=== PATIENT | female | born 1995 | race Caucasian/White ===

== ENCOUNTER → 2016-09-23 12:18 | Outpatient (CLI) | payer MEDICAID ==
[2015-12-04 06:10] VITALS: BMI 25.6
[~2016-09-23 12:18] MED LIST: IBUPROFEN600 MG PO; MOTRIN600 MG PO; PERCOCET 5-3251 TAB PO; PERCOCET 5/3251 TA1 PO; PRENATAL COMPLE1 TAB PO; VENTOLIN HFA18 GM INH
== END | disposition home or self-care (01) ==
LOC: D.US 12:18
DX: O44.00 Complete placenta previa NOS or without hemorrhage, unspecified trimester (principal)

== ENCOUNTER 2017-08-06 18:45 | Emergency (ER) | payer MEDICAID ==
[2015-12-04 06:10] VITALS: BMI 25.6
== END 2017-08-06 19:51 | disposition home or self-care (01) ==
LOC: D.ER 18:45
DX: H69.90 Unspecified Eustachian tube disorder, unspecified ear (principal); H66.93 Otitis media, unspecified, bilateral; F17.200 Nicotine dependence, unspecified, uncomplicated

== ENCOUNTER 2017-11-24 23:12 | Emergency (ER) | payer MEDICAID ==
[~2017-11-24] VITALS: Ht 162.6 cm; Wt 54.5 kg
[2017-11-24 23:26] VITALS: Ht 162.6 cm; Wt 54.5 kg
[2017-11-24 23:57] LABS: LYMPHOCYTES 31.7 % (15-50); MCH 23.3 pg (26.0-34.0); MCHC 30.6 g/dL (31.0-37.0); MCV 76.1 fL (80.0-100.0); MEAN PLATELET VOLUME 8.7 fL (7.4-10.4); NEUTROPHILS 56.5 % (40-80); PLATELET COUNT 282 10x3/uL (130-400); RBC 4.73 10x6/uL (4.00-5.40); RDW 19.7 % (11.5-14.5); WBC 6.8 10x3/uL (4.8-10.8)
[2017-11-25 00:03] LABS: APPEARANCE HAZY (CLEAR); BILIRUBIN NEGATIVE (NEGATIVE); COLOR YELLOW (YELLOW); GLUCOSE NEGATIVE (NEGATIVE); KETONE NEGATIVE (NEGATIVE); NITRITE NEGATIVE (NEGATIVE); PROTEIN 1+ mg/dL (NEGATIVE); SPECIFIC GRAVITY 1.025 (1.005-1.020); UROBILINOGEN NORMAL (NORMAL)
[2017-11-25 00:04] LABS: EPITHELIAL CELLS 0-5 /hpf (0-5); RED CELLS - URINE NONE SEEN /hpf (0-5); WHITE CELLS - URINE 0-5 /hpf (0-5)
[2017-11-25 00:05] LABS: BACTERIA MODERATE /hpf (NONE SEEN); MUCUS >1+ /lpf (NONE SEEN)
[2017-11-25 00:07] LABS: HCG SERUM NEGATIVE (NEGATIVE)
[2017-11-25 00:16] LABS: ALBUMIN 4.1 g/dL (3.4-5.0); ALKALINE PHOSPHATASE 88 U/L (46-116); ALT (SGPT) 16 U/L (10-68); BILIRUBIN - TOTAL 0.14 mg/dL (0.2-1.3); CALC OSMOLALITY 276 mosm/kg (275-300); CALCIUM 8.8 mg/dL (8.5-10.1); CARBON DIOXIDE 28.1 mmol/L (21.0-32.0); CHLORIDE - SERUM 104 mmol/L (98-107); CREATININE - SERUM 0.6 mg/dL (0.6-1.3); GLUCOSE 78 mg/dL (74-106); POTASSIUM - SERUM 4.4 mmol/L (3.5-5.1); PROTEIN - SERUM 7.8 g/dL (6.4-8.2); SODIUM 139 mmol/L (136-145); UREA NITROGEN 12 mg/dL (7-18); eGFR NON AFRICAN AMERICAN > 90 mL/min (90-120)
[2017-11-25 00:33] LABS: AMYLASE - SERUM 42 U/L (25-115); LIPASE 179 U/L (73-393)
[2017-11-25 01:25] VITALS: BP 121/69
== END 2017-11-25 01:26 | disposition home or self-care (01) ==
LOC: D.ER 23:12
PROVIDERS: Family Medicine
DX: R10.2 Pelvic and perineal pain (principal); N83.209 Unspecified ovarian cyst, unspecified side; F17.200 Nicotine dependence, unspecified, uncomplicated

== ENCOUNTER 2018-01-07 07:17 | Emergency (ER) | payer MEDICAID ==
[~2018-01-07] VITALS: Ht 162.6 cm; Wt 56.8 kg
[2018-01-07 07:32] VITALS: Ht 162.6 cm; Wt 56.8 kg
[2018-01-07 08:03] LABS: BASOPHILS 0.1 % (0-2); EOSINOPHILS 0.1 % (0-7); HEMATOCRIT 35.3 % (36.0-48.0); HEMOGLOBIN 11.1 g/dL (12-16); IMMATURE GRANULOCYTES 0.3 % (0-5); LYMPHOCYTES 4.2 % (15-50); MCH 24.4 pg (26.0-34.0); MCHC 31.4 g/dL (31.0-37.0); MCV 77.6 fL (80.0-100.0); MEAN PLATELET VOLUME 9.2 fL (7.4-10.4); MONOCYTES 3.7 % (2-11); NEUTROPHILS 91.6 % (40-80); RBC 4.55 10x6/uL (4.00-5.40); RDW 19.6 % (11.5-14.5); WBC 10.1 10x3/uL (4.8-10.8)
[2018-01-07 08:05] LABS: PLATELET COUNT 219 10x3/uL (130-400)
[2018-01-07 08:17] LABS: ALKALINE PHOSPHATASE 82 U/L (46-116); ALT (SGPT) 20 U/L (10-68); BILIRUBIN - TOTAL 0.52 mg/dL (0.2-1.3); CALC OSMOLALITY 275 mosm/kg (275-300); CALCIUM 8.8 mg/dL (8.5-10.1); CARBON DIOXIDE 26.8 mmol/L (21.0-32.0); CHLORIDE - SERUM 102 mmol/L (98-107); CREATININE - SERUM 0.7 mg/dL (0.6-1.3); GLUCOSE 89 mg/dL (74-106); POTASSIUM - SERUM 4.2 mmol/L (3.5-5.1); PROTEIN - SERUM 7.8 g/dL (6.4-8.2); SODIUM 139 mmol/L (136-145); UREA NITROGEN 11 mg/dL (7-18); eGFR NON AFRICAN AMERICAN > 90 mL/min (90-120)
[2018-01-07 08:21] LABS: AMYLASE - SERUM 29 U/L (25-115); LIPASE 91 U/L (73-393); TROPONIN-I < 0.017 ng/mL (0.000-0.060)
[2018-01-07 08:23] LABS: HCG URINE NEGATIVE (NEGATIVE)
[2018-01-07 08:43] LABS: APPEARANCE CLOUDY (CLEAR); COLOR YELLOW (YELLOW)
[2018-01-07 08:44] LABS: BACTERIA MANY /hpf (NONE SEEN); BILIRUBIN NEGATIVE (NEGATIVE); EPITHELIAL CELLS 0-5 /hpf (0-5); GLUCOSE NEGATIVE (NEGATIVE); KETONE NEGATIVE (NEGATIVE); MUCUS <1+ /lpf (NONE SEEN); NITRITE POSITIVE (NEGATIVE); PROTEIN TRACE mg/dL (NEGATIVE); RED CELLS - URINE 0-5 /hpf (0-5); UROBILINOGEN NORMAL (NORMAL)
[2018-01-07] MEDS ORDERED: KEFLEX500 MG PO (09:53)
[2018-01-07] MEDS ORDERED: PHENAZOPYRIDIN200 MG PO (09:53)
[2018-01-07] MEDS ORDERED: MACROBID100 MG PO (09:53)
[2018-01-07 10:56] VITALS: BP 118/62
== END 2018-01-07 11:00 | disposition home or self-care (01) ==
LOC: D.ER 07:17
PROVIDERS: Family Medicine
DX: N39.0 Urinary tract infection, site not specified (principal); M54.5 Low back pain; R51 Headache; R10.9 Unspecified abdominal pain; R00.2 Palpitations; R00.0 Tachycardia, unspecified; F17.200 Nicotine dependence, unspecified, uncomplicated

== ENCOUNTER 2019-11-16 19:32 | Emergency (ER) | payer SELFPAY ==
[~2019-11-16] VITALS: Ht 162.6 cm; Wt 56.4 kg
[~2019-11-16 19:32] MED LIST changes: +KEFLEX500 MG PO; +MACROBID100 MG PO; +PHENAZOPYRIDIN200 MG PO
[2019-11-16 19:43] VITALS: Ht 162.6 cm; Wt 56.4 kg
[2019-11-16 20:08] LABS: BASOPHILS 0.3 % (0-2); EOSINOPHILS 0.8 % (0-7); HEMATOCRIT 37.7 % (36.0-48.0); HEMOGLOBIN 11.7 g/dL (12-16); MCH 27.9 pg (26.0-34.0); MEAN PLATELET VOLUME 9.9 fL (7.4-10.4); MONOCYTES 9.3 % (2-11); NEUTROPHILS 41.6 % (40-80); PLATELET COUNT 227 10x3/uL (130-400); RBC 4.19 10x6/uL (4.00-5.40); RDW 16.1 % (11.5-14.5); WBC 6.1 10x3/uL (4.8-10.8)
[2019-11-16 20:11] LABS: BILIRUBIN NEGATIVE (NEGATIVE); GLUCOSE NEGATIVE (NEGATIVE); KETONE NEGATIVE (NEGATIVE); NITRITE NEGATIVE (NEGATIVE); UROBILINOGEN NORMAL (NORMAL)
[2019-11-16 20:13] LABS: EPITHELIAL CELLS 0-5 /hpf (0-5); HCG URINE NEGATIVE (NEGATIVE); RED CELLS - URINE OCC /hpf (0-5); WHITE CELLS - URINE 0-5 /hpf (NEGATIVE)
[2019-11-16 20:47] LABS: CALC OSMOLALITY 277 mosm/kg (275-300); CALCIUM 8.4 mg/dL (8.5-10.1); CARBON DIOXIDE 28.9 mmol/L (21.0-32.0); CHLORIDE - SERUM 106 mmol/L (98-107); CREATININE - SERUM 0.9 mg/dL (0.6-1.3); GLUCOSE 89 mg/dL (74-106); POTASSIUM - SERUM 4.4 mmol/L (3.5-5.1); SODIUM 139 mmol/L (136-145); UREA NITROGEN 14 mg/dL (7-18); eGFR NON AFRICAN AMERICAN 81 mL/min (90-120)
[2019-11-16 20:51] LABS: ALKALINE PHOSPHATASE 55 U/L (30-120); ALT (SGPT) 20 U/L (10-68); AMYLASE - SERUM 37 U/L (25-115); BILIRUBIN - TOTAL 0.25 mg/dL (0.2-1.3); LIPASE 138 U/L (73-393)
[2019-11-16] MEDS ORDERED: NAPROSYN500 MG PO (23:00)
[2019-11-16 23:22] VITALS: BP 104/54
== END 2019-11-16 23:22 | disposition home or self-care (01) ==
LOC: D.ER 19:32
PROVIDERS: Family Medicine
DX: E28.2 Polycystic ovarian syndrome (principal); N93.8 Other specified abnormal uterine and vaginal bleeding; R10.30 Lower abdominal pain, unspecified; J45.909 Unspecified asthma, uncomplicated; Z72.0 Tobacco use

== ENCOUNTER 2020-07-28 11:36 | Inpatient (IN) | payer OTHER ==
[~2020-07-28] VITALS: Ht 160 cm; Wt 60.0 kg
[~2020-07-28 11:36] MED LIST changes: +BC PILL PO; +HYDROCODON-ACE1 EAC7 PO; +NAPROSYN500 MG PO
[2020-08-08 09:59] LABS: CALC OSMOLALITY 272 mosm/kg (275-300); CALCIUM 8.9 mg/dL (8.5-10.1); CARBON DIOXIDE 27.3 mmol/L (21.0-32.0); CHLORIDE - SERUM 104 mmol/L (98-107); CREATININE - SERUM 0.7 mg/dL (0.6-1.3); GLUCOSE 83 mg/dL (74-106); POTASSIUM - SERUM 3.8 mmol/L (3.5-5.1); SODIUM 137 mmol/L (136-145); UREA NITROGEN 12 mg/dL (7-18); eGFR NON AFRICAN AMERICAN > 90 mL/min (90-120)
[2020-08-08 10:31] LABS: BASOPHILS 0.2 % (0-2); EOSINOPHILS 0.2 % (0-7); HEMATOCRIT 38.4 % (36.0-48.0); HEMOGLOBIN 12.7 g/dL (12-16); LYMPHOCYTE ABS# 2.26 10x3/uL (1.18-3.74); LYMPHOCYTES 45.4 % (15-50); MCH 29.5 pg (26.0-34.0); MCHC 33.1 g/dL (31.0-37.0); MCV 89.1 fL (80.0-100.0); MONOCYTES 13.1 % (2-11); NEUTROPHIL ABS# 2.05 10x3/uL (1.56-6.13); NEUTROPHILS 41.1 % (40-80); PLATELET COUNT 202 10x3/uL (130-400); RBC 4.31 10x6/uL (4.00-5.40); RDW 13.7 % (11.5-14.5)
[2020-08-11] VITALS (8 sets, daily range): BP systolic 101–129; BP diastolic 55–72; Ht 160 cm; Wt 60.0 kg
[2020-08-11 06:17] LABS: HCG URINE NEGATIVE (NEGATIVE)
--- NOTE | 2020-08-11 10:00 | NUR ---
AFTER 1.5 DILAUDED AND 25 DEM PATEINT STATES 10/10 PAIN.
--- NOTE | 2020-08-11 10:04 | NUR ---
PATIENT IS STATING SHE IS STILL IN PAIN AFTER 2 MG OF DILAUDED AND 25 OF DEM.
--- NOTE | 2020-08-11 10:46 | NUR ---
NEW ORDER FROM ANESTHESIA FOR 2 OF VERSED. AND 5 OF PRECEDEX
--- NOTE | 2020-08-11 10:49 | NUR ---
ANESTHESIA AT BEDSIDE.
--- NOTE | 2020-08-11 11:15 | NUR ---
RECEIVED BY BED FROM RECOVERY, SHE IS DROWSY BUT AWAKEN EASILY TO HER NAME. RATES PAIN AT 2/10 AT THIS TIME, PER RECOVERY ROOM NURSE ANESTHESIA HAD JUST DONE LEFT PELVIC AREA NERVE BLOCK FOR PAIN CONTROL. PT STATES SHE IS USED TO HAVING PAIN AT 5+DAILY. VS CHARTED TO FLOWSHEET. DIXON CATH TO BEDSIDE DRAIN WITH CLEAR BLUE TINT URINE NOTED. IV TO LEFT FOREARM INFUSING PER ORDERS. SMALL SPRITE REQUESTED. LIGHTS TURNED DOWN, SIDE RAILS UP X 2 WITH CALL LIGHT IN REACH.
--- NOTE | 2020-08-11 12:48 | NUR ---
DILAUDID TRENCHING MACHINE OPERATOR STARTED WITH VERBAL INSTRUCTIONS ON USE GIVEN BY A JENNY RN, PT THEN DEMONSTRATES UNDERSTANDING OF USE. ICE PACK TO INCISION SITE AND SPRITE PROVIDED REQUESTED. PT RATES PAIN AT INCISION AT 10/10 PRIOR TO TRENCHING MACHINE OPERATOR BEING STARTED.
--- NOTE | 2020-08-11 13:00 | NUR ---
PT C/O NAUSEA, EMESIS BAG PROVIDED. COOL WASHCLOTH PROVIDED FOR COMFORT.
--- NOTE | 2020-08-11 13:15 | NUR ---
IV RESITED DUE TO POSITION OF CURRENT IV. Nisa SHEPARD RN RESITES IV TO RIGHT HAND X 1 ATTEMPT, 20 G CATH, AND TAPED IN PLACE. PT CHRIS WELL. SRUP X2, CALL LIGHT AND PHONE WITHIN REACH.
--- NOTE | 2020-08-11 13:35 | NUR ---
PT QUESTIONING RN, WANTS TO KNOW WHEN DR. SHER WILL COME TO SPEAK WITH HER, PT STATES SHE WANTS DIXON CATH TAKEN OUT. PT REQUESTS FOR RN TO CALL MD. PHONE CALL MADE TO DR. SHER WITH PT'S REQUEST GIVEN TO MD. STATES HE WILL REVIEW AFTERNOON BLOOD COUNT BEFORE ADVANCING TO DC DIXON CATH, AND WILL CONTINUE TO WATCH URINE OUTPUT. TO PT'S ROOM TO EXPLAIN PLAN OF CARE TO HER AND HER VISITOR. PT DENIES NEEDS AT THIS TIME. SRUP X2, CALL LIGHT AND PHONE WITHIN REACH.
--- NOTE | 2020-08-11 13:45 | NUR ---
PT'S VISITOR OUT TO NURSE DESK, STATES "SHE IS DRY HEAVING AND STILL NAUSEATED AND HAS NOTHING TO THROW UP". TO ROOM, PT STATES SHE IS CONCERNED THE DILAUDID IS MAKING HER NAUSEATED AND REQUESTS MORPHINE INSTEAD, STATES IT DOES NOT MAKE HER NAUEATED. PT ASKS RN TO CALL MD. PHONE CALL MADE TO DR. SHER. REPORT OF PT'S CONCERNS GIVEN TO MD. TELEPHONE ORDER RECEIVED TO ADMINISTER PHENERGAN 25 MG IV NOW. STATES MORPHINE HAS NAUSEATING EFFECTS, MD WANTS PT TO STAY ON IV DILAUDID FOR NOW, SINCE SHE IS APPROX 3 HRS POST SURGERY. IF PT WISHES TO STOP DILAUDID IV, MD WILL ORDER PERCOCET 10 MG PO Q 4HRS PRN.
--- NOTE | 2020-08-11 14:00 | NUR ---
TO PT'S ROOM, PT IS RESTING ON HER RIGHT SIDE, WITH EYES CLOSED, IV LR IS BEEPING LOW VOLUME. PT STATES "I THINK I'M FINALLY STARTING TO FEEL BETTER", PLAN OF CARE DISCUSSED WITH PT. LIGHTS IN ROOM ARE DIMMED. SRUP X2, CALL LIGHT AND PHONE WITHIN REACH.
[2020-08-11 15:46] LABS: BASOPHILS 0.1 % (0-2); EOSINOPHILS 0 % (0-7); HEMATOCRIT 35.8 % (36.0-48.0); HEMOGLOBIN 11.5 g/dL (12-16); IMMATURE GRANULOCYTES 0.2 % (0-5); LYMPHOCYTE ABS# 0.28 10x3/uL (1.18-3.74); LYMPHOCYTES 2.6 % (15-50); MCH 29.3 pg (26.0-34.0); MCHC 32.1 g/dL (31.0-37.0); MCV 91.1 fL (80.0-100.0); MEAN PLATELET VOLUME 10.1 fL (7.4-10.4); MONOCYTES 2.2 % (2-11); NEUTROPHIL ABS# 10.42 10x3/uL (1.56-6.13); NEUTROPHILS 94.9 % (40-80); PLATELET COUNT 170 10x3/uL (130-400); RBC 3.93 10x6/uL (4.00-5.40); RDW 13.8 % (11.5-14.5)
[2020-08-11 15:54] LABS: CALC OSMOLALITY 280 mosm/kg (275-300); CALCIUM 8.2 mg/dL (8.5-10.1); CHLORIDE - SERUM 105 mmol/L (98-107); CREATININE - SERUM 0.9 mg/dL (0.6-1.3); POTASSIUM - SERUM 3.9 mmol/L (3.5-5.1); SODIUM 139 mmol/L (136-145); UREA NITROGEN 11 mg/dL (7-18); eGFR NON AFRICAN AMERICAN 81 mL/min (90-120)
[2020-08-11 15:56] LABS: GLUCOSE 170 mg/dL (74-106)
--- NOTE | 2020-08-11 17:00 | NUR ---
PT TRANSFERRED TO ROOM 1273 BY BED. IVF'S CONTINUE TO INFUSE LR AT 125 ML/HR, DILAUDID FARM PRODUCTS SHIPPER, PT HAS BUTTON WITHIN REACH. PT STATES SHE IS FEELING SOMEWHAT BETTER NOW, DECREASED NAUSEA. DENIES SOB, CHEST PAIN OR DIFFICULTY BREATHING. SCDS PLUGGED IN TO WALL. INCENTIVE SPIROMETER PROVIDED WITH INSTRUCTIONS FOR USE, PT DEMONSTRATES WELL. LARGE ICE WATER AND SMOOTH LEMON WALES SERVED. NEW ICE PACK PLACED OVER GOWN TO INCISION. PT DENIE ALL OTHER NEEDS. SRUP X2, CALL LIGHT AND PHONE WITHIN REACH. 1000 CCS EMPTIED OUT OF DIXON CATH.
--- NOTE | 2020-08-11 18:04 | NUR ---
TELEPHONE CALL TO DR. SHER, HEMOGLOBIN AND CREATININE RESULTS GIVEN TO MD, NO NEW ORDERS RECEIVED REGARDING LABS. URINE OUTPUT REPORTED TO MD. TELEPHONE ORDER RECEIVED TO DAVIDA DIXON IF PT WISHES. MAY CHANGE DILAUDID TRANSFER IRON OPERATOR TO PERCOCET 10 MG ONE PO Q 4 HRS PRN IF PT CONTINUES TO C/O NAUSEA ASSOCIATED WITH DILAUDID. CARE HAS BEEN HANDED TO DR. VIERA, TO CALL HIM FOR FURTHER ORDERS.
--- NOTE | 2020-08-11 20:10 | NUR ---
RECEIVED REPORT FROM VERONIQUE HERNANDEZ RN
--- NOTE | 2020-08-11 20:25 | NUR ---
ASSESSMENT PER FLOW SHEET, VS OBTAINED, IV IN RIGHT HAND INTACT WITH NO REDNESS OR EDEMA INFUSING VIA PUMP LR AT 125 ML/HR, DILAUDID MOBILE APPLICATION ARCHITECT INFUSING PER MD ORDERS, PT INST ON AND USING MOBILE APPLICATION ARCHITECT INST, [employer] WITH DRESSING INTACT, DRAINAGE NOTED AND OUTLINE ON DRESSING, NO VAG BLEEDING NOTED, DIXON CATH INTACT, DIXON EMPTIED, FRESH ICE PACK TO ABD, SCD'S ON AND WORKING PROPERLY, PT SERVED CHICKEN BROTH AND LEMON OUZINKIE SODA, DENIES FURTHER NEEDS AT THIS TIME
--- NOTE | 2020-08-11 21:40 | NUR ---
ROUNDS MADE, PT SITTING UP IN BED COLORING, DENIES NEEDS AT THIS TIME
--- NOTE | 2020-08-11 22:23 | NUR ---
PT NEEDLE SETTER LIGHT, PT REQUESTED LIGHTS OFF, DENIES FURTHER NEEDS
--- NOTE | 2020-08-11 22:51 | NUR ---
NEW BAG OF NS HUNG AND ADM TORADOL SIVP PER MD ORDERS, SEE EMAR, PT DENIES FURTHER NEEDS AT THIS TIME
[2020-08-12 00:04] VITALS: BP 109/69
--- NOTE | 2020-08-12 00:04 | NUR ---
PT AWAKE, VS OBTAINED, NEW VIAL OF DILAUDID TO VEST MAKER PER MD ORDERS, SEE EMAR, PT REQUESTED AND REMOVED SCD'S AT THIS TIME, PT EXPLAINED THE REASON OF SCD'S, PT VERBALIZES UNDERSTANDING, DENIES FURTHER NEEDS
--- NOTE | 2020-08-12 02:01 | NUR ---
PT RN HOSPITAL LIGHT, RE-TAPED IV TUBING, PT DENIES PAIN, REPORTS TORADOL "DID GOOD", PT CONTINUES TO REFUSE SCD'S AT THIS TIME, EMPTIED DIXON CATH, PT DENIES FURTHER NEEDS
--- NOTE | 2020-08-12 02:30 | NUR ---
REPORT TO VERONIQUE HERNANDEZ RN
--- NOTE | 2020-08-12 04:58 | NUR ---
PERCOCET 10/325 MG TABLET ADMINISTERED ORALLY PER MD ORDERS AFTER PLACING DILAUDID PAINT PREP TECHNICIAN ON HOLD TO DISCONTINUE.
--- NOTE | 2020-08-12 05:00 | NUR ---
DILAUDID DJ INSTRUCTOR DISCONTINUED PER MD ORDERS WITH 5 MGS USED DURING THIS SHIFT. 20 G. IV IN RIGHT HAND IS SALINE LOCKED AT THIS TIME.
--- NOTE | 2020-08-12 05:01 | NUR ---
TORADOL 30MG ADMINISTERED IVP PER MD ORDERS AND PT. REPORT OF PAIN THAT RATES A "6" ON 0-10 SCALE. DISCUSSED WITH PT. WHEN MEDICATIONS WILL BE AVAILABLE TO HER AGAIN. PT. VERBALIZES UNDERSTANDING.
[2020-08-12 05:05] VITALS: BP 112/71
--- NOTE | 2020-08-12 05:10 | NUR ---
16 FR. DIXON CATH DISCONTINUED WITH 600 MLS CLEAR YELLOW URINE NOTED IN BAG. PT. INSTRUCTED TO CALL WHEN NEEDING TO GET UP TO BATHROOM SO THAT I MAY MAKE SURE SHE IS STABLE ON HER FEET. PT. INSTRUCTED THAT SHE MAY SHOWER AFTER EATING BREAKFAST THIS MORNING. ASSISTED PT. UP TO BATHROOM AMBULATORY AT HER REQUEST. PT. UNABLE TO VOID AT THIS TIME BUT PERFORMS PERICARE WITH WARM WET WASHCLOTHS AND APPLIES CASSANDRA PAD AND PANTIES. PT. REQUEST TO PUT HER GOWN ON AT THIS TIME AND IS INSTRUCTED SHE MAY DO SO. CHUX CHANGED ON BED. ABDOMINAL DRESSING WITH OLD BLOOD NOTED. INSTRUCTED PT. REGARDING REMOVING DRESSING UPON GETTING IN THE SHOWER AND GETTING IT WET FIRST. PT. VERBALIZES UNDERSTANDING.
--- NOTE | 2020-08-12 05:15 | NUR ---
AM LABS DRAWN VIA [employer] ON 1ST ATTEMPT.
--- NOTE | 2020-08-12 05:20 | NUR ---
LARGE CUP OF WATER PROVIDED ALONG WITH FRESH ICE PACK. PT. DENIES FURTHER NEEDS AT THIS TIME.
[2020-08-12 05:39] LABS: BASOPHILS 0 % (0-2); EOSINOPHILS 0 % (0-7); HEMATOCRIT 34.1 % (36.0-48.0); HEMOGLOBIN 11.1 g/dL (12-16); IMMATURE GRANULOCYTES 0.1 % (0-5); LYMPHOCYTE ABS# 0.93 10x3/uL (1.18-3.74); LYMPHOCYTES 8.3 % (15-50); MCH 29.5 pg (26.0-34.0); MCHC 32.6 g/dL (31.0-37.0); MCV 90.7 fL (80.0-100.0); MEAN PLATELET VOLUME 10.7 fL (7.4-10.4); MONOCYTES 10.6 % (2-11); NEUTROPHIL ABS# 9.08 10x3/uL (1.56-6.13); PLATELET COUNT 165 10x3/uL (130-400); RBC 3.76 10x6/uL (4.00-5.40); RDW 14.1 % (11.5-14.5); WBC 11.2 10x3/uL (4.8-10.8)
--- NOTE | 2020-08-12 05:47 | NUR ---
PT. LYING IN LEFT SIDE LYING POSITION UPON ENTERING ROOM. PT. DENIES ANY RELIEF OF PAIN AT THIS TIME AND REPORTS "I THINK I MAY HAVE JUST GOTTEN UP TOO FAST OR SOMETHING". INSTRUCTED PT. THAT SHE NEEDS TO TAKE THINGS SLOWLY THIS MORNING AND NOT JUST POP RIGHT OUT OF BED BECAUSE SHE CAN CAUSE INCISIONAL DAMAGE. PT. VERBALIZES UNDERSTANDING. DENIES FURTHER NEEDS AT THIS TIME.
[2020-08-12 05:48] LABS: CALCIUM 8.8 mg/dL (8.5-10.1); CHLORIDE - SERUM 109 mmol/L (98-107); CREATININE - SERUM 0.7 mg/dL (0.6-1.3); SODIUM 142 mmol/L (136-145); eGFR NON AFRICAN AMERICAN > 90 mL/min (90-120)
[2020-08-12 05:49] LABS: CALC OSMOLALITY 280 mosm/kg (275-300); GLUCOSE 103 mg/dL (74-106); UREA NITROGEN 6 mg/dL (7-18)
--- NOTE | 2020-08-12 06:15 | NUR ---
ROUNDS COMPLETED, PT OOB TO BR, VOIDS 250 ML PALE YELLOW CLEAR URINE TO SPECIPAN WITHOUT DIFFICULTY, DENIES OTHER NEEDS OR CONCERNS AT PRESENT, RESP EVEN AND UNLABORED, C/L PLACED WITHIN EASY REACH OF PT, HOB ELEVATED 30 DEGREES, SR UP X2, BED IN LOW POSITION, BED BRAKES LOCKED. CONTINUE TO MONITOR.
--- NOTE | 2020-08-12 07:58 | NUR ---
UP TO SHOWER. R HAND PIV COVERED. VERBALIZES UNDERSTANDING OF BR CALL LIGHT USE. STEADY GAIT NOTED. TOWELS PROVIDED. LINEN CHANGED.
[2020-08-12 08:44] VITALS: BP 108/58
--- NOTE | 2020-08-12 08:44 | NUR ---
SHIFT ASSESSMENT COMPLETED PER FLOWSHEET. DRSG TO LOWER TRANSVERSE ABD INCISION REMOVED. BRITTANY INTACT, INCISION WELL APPROXIMATED, SCANT AMT SEROSANGIUENOUS DRAINAGE NOTED. DISCUSSED INCISIONAL CARE, VERBALIZES UNDERSTANDING. PERIPAD PLACED OVER INCISION. PT TEARFUL, STATES THAT IT IS PAIN RELATED, MEDICATED PER EMAR. 500 MLS CLEAR LIGHT YELLOW URINE EMPTIED FROM HAT. PT REPORTS THAT SHE HAS VOIDED X3. REFUSES SCD'S, EDUCATIONS PROVIDED. ICE WATER PROVIDED. C/O PAIN 8-[address] WILL NOTIFY [address] VIERA. BED IN LOW POSITION WITH SRUP X2. PT REQUESTS NICOTINE PATCH. STATES THAT SHE VAPES DAILY.
--- NOTE | 2020-08-12 08:49 | NUR ---
DR. VIERA AT BEDSIDE. UNCONTROLLED PAIN DISCUSSED AND PT REQUEST FOR NICOTINE PATCH. ORDERS REC'D. PER DR. VIERA HE WILL PLACE PAIN MED ORDERS.
--- NOTE | 2020-08-12 08:57 | NUR ---
NICOTINE PATCH PLACED. EDUCATED ON IMPORTANCE OF REMOVING PATCH PRIOR TO USING NICOTINE SOURCE, VERBALIZES UNDERSTANDING.
--- NOTE | 2020-08-12 09:56 | NUR ---
MEDICATED PER EMAR. PT EDUCATED ON MEDS AND BOARD UPDATED IN ROOM. ICE WATER AND SODA PROVIDED. CONTINUES TO REFUSE SCD'S AND EDUCATION PROVIDED. DENIES ADDITIONAL NEEDS AT THIS TIME. CRACKERS AND PEANUT BUTTER PROVIDED AND PT ENCOURAGED TO EAT WITH MEDS, VERBALIZES UNDERSTANDING. FALL PRECAUTIONS GIVEN. BED IN LOW POSITION WITH SRUP X2. CALL LIGHT AND PHONE WITHIN REACH. SIGNIFICANT OTHER AT BEDSIDE, SUPPORTIVE AND ATTENTIVE TO PT NEEDS.
--- NOTE | 2020-08-12 10:27 | NUR ---
RESTING QUIETLY WITH EYES CLOSED. RESP REGULAR AND UNLABORED, NO S/S OF DISTRESS NOTED.
--- NOTE | 2020-08-12 11:34 | NUR ---
CONTINUES RESTING WITH EYES CLOSED. LAYING ON L SIDE, RESP REGULAR AND UNLABORED, NO S/S OF DISTRESS NOTED. BED IN LOW POSITION WITH SRUP X2. CALL LIGHT AND PHONE WITHIN REACH.
--- NOTE | 2020-08-12 12:35 | NUR ---
C/O ABD AND INCISIONAL DISCOMFORT. MEDICATED PER EMAR. REPORTS FEELING NEED TO MORE FLATUS, STATES THAT SHE IS PASSING FLATUS "JUST NOT A LOT." ENCOURAGED TO AMBULATE IN [place], VERBALIZES UNDERSTANDING. REQUEST STOOL SOFTENERS D/T "ISSUES WITH CONSTIPATION."WILL NOTIFY MD.
--- NOTE | 2020-08-12 12:41 | NUR ---
DR. VIERA NOTIFIED OF PT REQUEST TO BEGIN STOOL SOFTENERS. ORDERS REC'D.
--- NOTE | 2020-08-12 12:59 | NUR ---
COLACE, SIMETHICONE, AND MIRALAX GIVEN PER EMAR. PT EDUCATED ON MEDS AND IMPORTANCE OF INCREASING FLUID INTAKE, VERBALIZES UNDERSTANDING. REINFORCED TEACHING ON IMPORTANCE OF AMBULATION AND SCD'S. VERBALIZES UNDERSTANDING. REFUSES SCD'S AT THIS TIME. BED IN LOW POSITION WITH SRUP X2. CALL LIGHT AND PHONE WITHIN REACH.
--- NOTE | 2020-08-12 13:26 | NUR ---
LAYING ON R SIDE RESTING WITH EYES CLOSED. RESP REGULAR AND UNLABORED, NO S/S OF DISTRESS NOTED. PT NOT DISTURBED TO ALLOW FOR REST. BED IN LOW POSITION WITH SRUP X2. CALL LIGHT AND PHONE WITHIN REACH.
--- NOTE | 2020-08-12 14:42 | NUR ---
ROUNDS MADE. RESTING WITH EYE CLOSED, RESP REGULAR AND UNLABORED, NO S/S OF DISTRESS NOTED. BED IN LOW POSITION WITH SRUP X2. CALL LIGHT AND PHONE WITHIN REACH.
[2020-08-12 16:24] VITALS: BP 95/53
--- NOTE | 2020-08-12 16:25 | NUR ---
VSS. MEDICATED PER EMAR FOR C/O ABD AND INCISIONAL DISCOMFORT. EATING MEAL BROUGHT TO HER BY SIGNIFICANT OTHER. DENIES ADDITIONAL NEEDS. ENCOURAGED TO AMBULATE OUTSIDE OF ROOM FOLLOWING COMPLETING MEAL, VERBALIZES UNDERSTANDING. ICE WATER AND SPRITE PROVIDED. CALL LIGHT AND PHONE WITHIN REACH. BED IN LOW POSITION WITH CALL LIGHT AND PHONE WITHIN REACH.
--- NOTE | 2020-08-12 16:39 | NUR ---
AMBULATORY IN [place] WITH SIGNIFICANT OTHER. STEADY GAIT NOTED. DENIES NEEDS.
--- NOTE | 2020-08-12 17:16 | NUR ---
PAIN REASSESSMENT COMPLETED, 09/02. DENIES NEEDS. CONVERSING WITH SIGNIFICANT OTHER. BED IN LOW POSITION WITH SRUP X2. CALL LIGHT AND PHONE WITHIN REACH.
--- NOTE | 2020-08-12 17:27 | NUR ---
ICE WATER PROVIDED. GABAPENTIN GIVEN PER ORDER. DENIES ADDITIONAL NEEDS. WATCHING TV AT THIS TIME. BED IN LOW POSITION WITH SRUP X2. CALL LIGHT AND PHONE WITHIN REACH. SIGNIFICANT OTHER AT BEDSIDE, SUPPORTIVE AND ATTENTIVE TO PT AND INFANT NEEDS.
--- NOTE | 2020-08-12 18:38 | NUR ---
LAYING ON R SIDE, RESTING WITH EYES CLOSED. RESP REGULAR AND UNLABORED, NO S/S OF DISTRESS NOTED. BED IN LOW POSITION WITH SRUP X2. CALL LIGHT AND PHONE WITHIN REACH.
--- NOTE | 2020-08-12 19:36 | NUR ---
PT. AMBULATORY OFF UNIT WITH MOTHER AT THIS TIME.
--- NOTE | 2020-08-12 20:20 | NUR ---
PT. HYDROMETEOROLOGY TEACHER LIGHT AND REQUEST PAIN MEDICATION AT THIS TIME. PT. RATES PAIN AT "8" ON 0-10 SCALE. ADVISED I WILL BRING TO HER NOW.
--- NOTE | 2020-08-12 20:23 | NUR ---
PT. MEDICATED WITH PERCOCET 10/325 MG 1 TAB ORALLY PER MD ORDERS AND PT. REPORT OF PAIN THAT SHE RATES "8" ON 0-10 SCALE. VITALS COMPLETED. ASSESSMENT COMPLETED. SEE FLOWSHEET. BIKINI LINE INCISION WITH BRITTANY REMAIN C/D/I. RESP. ARE EVEN AND UNLABORED. BREATH SOUNDS CLEAR. PT. INSTRUCTED TO CONTINUE USING INCENTIVE SPIROMETER OFTEN ESPECIALLY SINCE SHE IS A SMOKER. PT. VERBALIZES UNDERSTANDING. PT. DENIES PASSING ANY GAS AT THIS TIME. BOWEL SOUNDS ACTIVE X 4. PT. ENCOURAGED TO WALK THE HALLWAY AGAIN TONIGHT BEFORE GOING TO SLEEP. PT. REPORTS "I WILL". PT. DENIES ANY FURTHER QUESTIONS OR CONCERNS AT THIS TIME. WILL CONT. TO MONITOR.
[2020-08-12 20:30] VITALS: BP 101/57
[2020-08-12 20:36] VITALS: BP 101/57
--- NOTE | 2020-08-12 21:21 | NUR ---
ROUNDS COMPLETED, PT RECUMBENT SEMI SIMS'S POSITION, RESP EVEN AND UNLABORED, EYES CLOSED, NAD NOTED. WILL MONITOR.
--- NOTE | 2020-08-12 22:43 | NUR ---
pt c/o nausea, tolerating miralax with oj per orders, provided prn zofran per pt request, hob elevated 20 degrees, sr up x2, bed in low position, sr up x2, denies other needs at present, c/l in easy reach, continue to monitor.
--- NOTE | 2020-08-13 02:25 | NUR ---
PT. SLEEPING UPON ENTERING ROOM. APPEARS TO BE RESTING COMFORTABLY. NO SIGNS OF DISTRESS NOTED. RESP. ARE EVEN AND UNLABORED. PT. NOT DISTURBED AT THIS TIME.
--- NOTE | 2020-08-13 05:45 | NUR ---
pt. awakens with door opening. pt. reports pain at "8" on 0-10 scale. pt. request pain medication at this time.
--- NOTE | 2020-08-13 05:47 | NUR ---
percocet 10/325 mg 1 tab administered orally per md orders and pt.'s complaint of pain. pt. denies further needs at this time.
[2020-08-13 07:29] VITALS: BP 104/61
--- NOTE | 2020-08-13 07:29 | NUR ---
SHIFT ASSESSMENT COMPLETED PER FLOWSHEET. VSS. PAIN CURRENTLY 09/02, DENIES NEED FOR INTERVENTION AT THIS TIME. C/O NAUSEA, ZOFRAN GIVEN IVP PER ORDER TO R HAND PIV. LOWER TRANSVERSE ABD INCISION WELL APPROXIMATED WITH BRITTANY INTACT. NO DRAINAGE NOTED. PT VERBALIZES UNDERSTANDING OF INCISIONAL CARE AND S/S OF INFECTION. EDUCATED ON ACTIVITY RESTRICTIONS UNTIL CLEARED BY MD, VERBALIZES UNDERSTANDING. REPORTS THAT SHE IS VOIDING AND PASSING FLATUS WITHOUT DIFFICULTY. REFUSES SCD'S, EDUCATION PROVIDED. ICE WATER PROVIDED. BED IN LOW POSITION WITH SRUP X2. CALL LIGHT AND PHONE WITHIN REACH.
--- NOTE | 2020-08-13 08:41 | NUR ---
DENIES NEEDS AT THIS TIME. WATCHING TV AND LOOKING AT CELL PHONE. BED IN LOW POSITION WITH SRUP X2. CALL LIGHT AND PHONE WITHIN REACH.
--- NOTE | 2020-08-13 09:37 | NUR ---
PAIN CURRENTLY 7-01/02. MEDICATED PER EMAR. ICE WATER PROVIDED. DENIES ADDITIONAL NEEDS. BED IN LOW POSITION WITH SRUP X2. CALL LIGHT AND PHONE WITHIN REACH. ICE PACK PROVIDED PER PT REQUEST.
--- NOTE | 2020-08-13 10:27 | NUR ---
RESTING QUIETLY WITH EYES CLOSED. RESP REGULAR AND UNLABORED, NO S/S OF DISTRESS NOTED. BED IN LOW POSITION WITH SRUP X2. CALL LIGHT AND PHONE WITHIN REACH.
[2020-08-13] MEDS ORDERED: IBUPROFEN800 MG PO (11:23)
[2020-08-13] MEDS ORDERED: ZOFRAN ODT4 MG/UDTAB PO (11:24)
[2020-08-13] MEDS ORDERED: PERCOCET 7.5/321 TAB PO (11:25)
[2020-08-13] MEDS ORDERED: NEURONTIN 300300 MG PO (11:25)
--- NOTE | 2020-08-13 11:42 | NUR ---
C/O NAUSEA AND REQUESTS ZOFRAN, GIVEN PER EMAR. R HAND PIV D/C'D FOLLOWING ZOFRAN, TIP INTACT, BANDAID PLACED. PT REPORTS THAT HER MOTHER IS COMING TO TAKE HER HOME AND REQUEST D/C INSTRUCTIONS ONCE HER MOTHER ARRIVES. BED IN LOW POSITION WITH SRUP X2. CALL LIGHT AND PHONE WITHIN REACH.
--- NOTE | 2020-08-13 13:13 | NUR ---
PERCOCET PROVIDED PER PT REQUEST FOR C/O ABD AND INCISIONAL DISCOMFORT. ABD BINDER PROVIDED AND PLACED ON, EDUCATED ON BINDER USE, VERBALIZES UNDERSTANDING. VERBAL AND WRITTEN D/C INSTRUCTIONS GIVEN, VERBALIZES UNDERSTANDING. PRESCRIPTIONS PROVIDED. OFF UNIT IN W/C WITH THIS RN IN STABLE CONDITION.
--- NOTE | 2020-08-25 06:45 | OP ---
PATIENT NAME: STACY GROVE MEDICAL RECORD: [id number] :94 LOCATION:[id number] ADMISSION DATE:08/11/20 SURGEON: NIKOLAI WEINSTEIN MD DATE OF OPERATION: 08/11/2020 PREOPERATIVE DIAGNOSES: 1. Pelvic pain. 2. Pelvic adhesions diagnosed by laparoscopy. POSTOPERATIVE DIAGNOSES: 1. Pelvic pain. 2. Pelvic adhesions diagnosed by laparoscopy. PROCEDURE: Lysis of adhesions, total abdominal hysterectomy and bilateral salpingectomy. SURGEON: Nikolai Weinstein ANESTHESIA: General endotracheal. INTRAVENOUS FLUIDS: Per anesthesia record. ESTIMATED BLOOD LOSS: 200 mL. SPECIMENS: Included uterus with cervix and bilateral fallopian tubes. COMPLICATIONS: None apparent. FINDINGS: 1. Extensive pelvic adhesions, especially involving the anterior surface of the uterus and bladder. 2. Grossly normal appearing fallopian tubes and ovaries. DESCRIPTION OF PROCEDURE: The patient was taken to the operating room where general anesthesia was achieved without any difficulty. The patient was then prepped and draped in normal sterile fashion in the dorsal supine position. A vaginal prep had been performed and a Molina catheter was placed and was draining freely. SCDs were on and functioning normally. Following prep of the abdomen and draping, a repeat Pfannenstiel skin incision was made, extended downward to the underlying subcutaneous fat to the level of the fascia. The fascia was then excised in the midline using the scalpel and extended bilaterally using the Thompson scissors. The superior and inferior aspect of the fascial incision was then grasped with Ranjeet clamps times 2, tented upwards and sharply dissected from the underlying rectus muscle using the Thompson scissors and the Bovie cautery. The rectus muscles were then bluntly in the midline. The peritoneum was entered sharply at the superior aspect of the incision. The peritoneal incision was extended bilaterally and inferiorly using the Metzenbaum scissors with direct visualization of the bladder. Attention was then turned to the uterus, which was grasped by its cornua bilaterally using Ranjeet clamps. The uterus was then elevated and the round ligaments were identified, they were clamped times 2 with Ranjeet clamps, cut and suture ligated with 0 Vicryl. A bladder flap was created by excising the anterior leaf of the broad ligament to approximately one-half [address] the way on across the anterior surface of the uterus and dense adhesions were noted. The bladder was very carefully dissected from the anterior surface of the uterus without any evidence of urinary injury. The OPERATIVE REPORT [id number] STACY GROVE bladder was then retracted inferiorly using a [place] retractor. The defect was made in the posterior leaf of the broad ligament and the proximal fallopian tube and uteroovarian ligament were clamped times 2 with curved Bayron clamps. These were then cut and suture ligated bilaterally using 0 Vicryl suture. The uterine arteries were then skeletonized bilaterally using the Metzenbaum scissors. The uterine arteries were then clamped bilaterally using curved Bayron clamps, cut and suture ligated using 0 Vicryl. Straight Bayron clamps were then placed across the cardinal ligaments. These were cut and suture ligated again with 0 Vicryl suture. Attention was then turned to the uterosacral ligaments and curved Bayron clamps were placed across the uterosacral ligaments and the uterus with cervix was excised using the Marybel scissors. The superior vagina was repaired with 0 Vicryl in interrupted [id number] fashion with good hemostasis noted. Attention was then turned to the bilateral adnexa where the fallopian tube was clamped at its most proximal end with a curved Bayron clamp and excised, this was performed bilaterally, this was then oversewn with 2-0 Vicryl times 2 with good hemostasis noted. All surgical sites were found to be hemostatic. The pelvis was thoroughly irrigated and hemostasis again was found to be adequate. No heme was noted in the urine. Counts were correct times 2 for needles, sponges, and instruments. The fascia was then repaired with 0 looped PDS and the skin repaired with narinder. The patient tolerated the procedure well and was transferred to postanesthesia recovery stable without incident. TRANSINT:[id number] Voice Confirmation ID: [id number] DOCUMENT ID: [id number] NIKOLAI WEINSTEIN MD at 0645 CC: [id number] DICTATION DATE: 08/24/2048 BOX BLANK MACHINE FEEDER: 08/24/20 0812 DIS IN 08/13/20 [facility] [address] [id number]
== END 2020-08-13 13:13 | disposition home or self-care (01) | DRG 983 ==
LOC: D.SDCHOLD 08-11 04:58 → D.LD 08-11 04:58 → D.SDCHOLD 08-11 07:30 → D.LD 08-11 10:08
PROVIDERS: ADMIT Obstetrics & Gynecology; ATTEND Obstetrics & Gynecology
PROC: 0UT90ZZ Resection of Uterus, Open Approach (ICD-10-PCS; principal; 2020-08-11 07:30)
PROC: 0UT70ZZ Resection of Bilateral Fallopian Tubes, Open Approach (ICD-10-PCS; 2020-08-11 07:30)
DX: R10.2 Pelvic and perineal pain (principal); F41.8 Other specified anxiety disorders; K21.9 Gastro-esophageal reflux disease without esophagitis; F17.200 Nicotine dependence, unspecified, uncomplicated